=== PATIENT | male | born 1935 | race African-American/Black ===

== ENCOUNTER 2016-03-06 11:23 | Observation (INO) | payer MEDICARE, MEDICAID ==
[2016-03-06] VITALS (12 sets, daily range): BP systolic 120–150; BP diastolic 68–79; PULSE 80–94; RESP 12–20; TEMP 98–98.2; O2SAT 96–100
[~2016-03-06] VITALS: Ht 170.2 cm; Wt 75.0 kg
--- NOTE | 2016-03-06 11:37 | PD ---
HPI Chief Complaint: Abdominal Pain Time Seen by Provider: 11:37 Travel History International Travel<30 days: No Contact w/Intl Traveler<30days: No Traveled to known affect area: No History of Present Illness HPI 80-year-old male with history of stage IV esophageal cancer was brought in by his son for generalized weakness and some abdominal discomfort. Patient has finished with his radiation therapy and now getting his chemotherapy. His last treatment was last Sunday in the next one is supposed to be on this coming Sunday. However patient has been feeling weak and feels some abdominal bloating and discomfort and some chest discomfort. Vital signs were stable. [facility] Past Medical History Narrative Medical List of his past medical history as reviewed from the nursing note. Social History Tobacco Use: No Allergies-Medications (Allergen,Severity, Reaction): Coded Allergies: No Known Allergies (Unverified , 03/06/16) Comments No known drug allergies. Reported Meds & Prescriptions Reported Meds & Active Scripts Active Reported Ondansetron Odt 4 Mg Tab 4 Mg SL Q6HR PRN Omeprazole 40 Mg Cap 40 Mg PO DAILY Hydrocodone-Acetaminophen 10-325 mg Tab 1 Tab PO Q4H PRN Narrative Medication List of his home medications reviewed from the nursing note. Review of Systems Except as stated in HPI: all other systems reviewed are Neg Physical Exam Narrative GENERAL: Awake, alert, elderly, debilitated, frail SKIN: Warm and dry. Pale HEAD: Atraumatic. Normocephalic. EYES: Pupils equal and round. No scleral icterus. No injection or drainage. Pallor ENT: No nasal bleeding or discharge. Dry mucous membrane. NECK: Trachea midline. No JVD. CARDIOVASCULAR: Regular rate and rhythm. No murmur appreciated. RESPIRATORY: No accessory muscle use. Clear to auscultation. Breath sounds equal bilaterally. GASTROINTESTINAL: Abdomen soft, non-tender, nondistended. Hepatic and splenic margins not palpable. MUSCULOSKELETAL: No obvious deformities. No clubbing. No cyanosis. No edema. NEUROLOGICAL: Awake and alert. No obvious cranial nerve deficits. Motor grossly within normal limits. Normal speech. PSYCHIATRIC: Appropriate mood and affect; insight and judgment normal. Data Data Last Documented VS Vital Signs Date Time Temp Pulse Resp B/P Pulse Ox O2 Delivery O2 Flow Rate FiO2 03/06/16 11:39 90 20 138/68 03/06/16 11:25 98.0 97 Room Air Orders Complete Blood Count With Diff (03/06/16 11:42) Comprehensive Metabolic Panel (03/06/16 11:42) Prothrombin Time / Inr (Pt) (03/06/16 11:42) Act Partial Throm Time (Ptt) (03/06/16 11:42) Urinalysis - C+S If Indicated (03/06/16 11:42) Ct Abd/Pel W/O Iv Contrast (03/06/16 11:42) Iv Access Insert/Monitor (03/06/16 11:42) Ecg Monitoring (03/06/16 11:42) Oximetry (03/06/16 11:42) Sodium Chloride 0.9% Flush (Ns Flush) (03/06/16 11:45) Electrocardiogram (03/06/16 11:42) Chest, Single Ap (03/06/16 11:42) Troponin I (03/06/16 11:42) Type And Screen (03/06/16 11:42) Sodium Chlorid 0.9% 500 Ml Inj (Ns 500 M (03/06/16 11:45) Red Blood Cells (Rbc) (03/06/16 13:20) Blood Product Administration .UPON TRANSFUSION (03/06/16 13:20) Sodium Chlor 0.9% 250 Ml Inj (Ns 250 Ml (03/06/16 13:30) Place In Observation (03/06/16 ) Vital Signs (Adult) ANJUM.Q4H (03/06/16 13:41) Activity Oob Ad Jessie (03/06/16 13:41) Case Management Consult (03/06/16 ) Dietary (Dietitian) Consult (03/06/16 ) Consult Pt Eval & Tx Oob (03/06/16 13:41) Admit Order (Ed Use Only) (03/06/16 13:42) Labs Laboratory Tests Test 03/06/16 03/06/16 03/06/16 11:55 12:00 13:20 Prothrombin Time 11.4 SEC Prothromb Time International 1.0 RATIO Ratio Activated Partial 39.0 SEC Thromboplast Time Sodium Level 134 MEQ/L Potassium Level 3.7 MEQ/L Chloride Level 100 MEQ/L Carbon Dioxide Level 26.2 MEQ/L Anion Gap 8 MEQ/L Blood Urea Nitrogen 14 MG/DL Creatinine 0.84 MG/DL Estimat Glomerular Filtration 107 ML/MIN Rate Random Glucose 107 MG/DL Calcium Level 8.9 MG/DL Iron Level 23 MCG/DL Total Iron Binding Capacity 165 MCG/DL Percent Iron Saturation 13.9 % Ferritin 1224 NG/ML Total Bilirubin 0.4 MG/DL Aspartate Amino Transf 16 U/L (AST/SGOT) Alanine Aminotransferase 12 U/L (ALT/SGPT) Alkaline Phosphatase 81 U/L Troponin I LESS THAN 0.02 NG/ML Total Protein 6.6 GM/DL Albumin 2.3 GM/DL Vitamin B12 Level 714 PG/ML Folate 4.9 NG/ML White Blood Count 5.3 TH/MM3 Red Blood Count 2.55 MIL/MM3 Hemoglobin 7.7 GM/DL Hematocrit 22.7 % Mean Corpuscular Volume 89.0 FL Mean Corpuscular Hemoglobin 30.3 PG Mean Corpuscular Hemoglobin 34.1 % Concent Red Cell Distribution Width 15.0 % Platelet Count 262 TH/MM3 Mean Platelet Volume 6.1 FL Neutrophils (%) (Auto) 80.9 % Lymphocytes (%) (Auto) 10.8 % Monocytes (%) (Auto) 8.0 % Eosinophils (%) (Auto) 0.0 % Basophils (%) (Auto) 0.3 % Neutrophils # (Auto) 4.3 TH/MM3 Lymphocytes # (Auto) 0.6 TH/MM3 Monocytes # (Auto) 0.4 TH/MM3 Eosinophils # (Auto) 0.0 TH/MM3 Basophils # (Auto) 0.0 TH/MM3 CBC Comment DIFF FINAL Differential Comment Blood Type O POSITIVE Antibody Screen NEGATIVE Blood Bank Comment Crossmatch Leukocyte-Reduced Red Blood Cells MDM Medical Decision Making Medical Screen Exam Complete: Yes Emergency Medical Condition: Yes Medical Record Reviewed: Yes Interpretation(s) Twelve-lead EKG was reviewed by me. Normal sinus rhythm, left axis deviation, old inferior CT, nonspecific ST-T wave changes. Heart rate of 89 bpm. Differential Diagnosis Worsening esophageal cancer, ACS, anemia Narrative Course 1:45 PM blood test results were back and hemoglobin is 7.7. I've ordered for 1 unit of PRBC transfusion. CAT scan of the abdomen shows the stent from the esophagus into the stomach. No other signs of obstruction. I think the patient would benefit from overnight observation, IV hydration. I recommended the hospitalist to consult with patient's oncologist as well. Patient will be admitted overnight and I've explained this to the patient and he is agreeable to it. Critical Care Narrative Aggregate critical care time was 30 minutes. Time to perform other separately billable procedures was not included in the critical care time. My time did not include minutes spent treating any other patients simultaneously or on activities that did not directly contribute to the patient's treatment. The services I provided to this patient were to treat and/or prevent clinically significant deterioration that could result in: Symptomatic anemia, blood transfusion I provided critical care services requiring my management, as noted below: Chart data review, documentation time, medication orders and management, vital sign assessments/reviewing monitor data, ordering and reviewing lab tests, ordering and interpreting/reviewing x-rays and diagnostic studies, care of the patient and discussion of the patient with the admitting physicians. Procedures EKG Prior to Arrival: No Diagnosis Primary Impression: Symptomatic anemia Additional Impressions: Esophageal cancer Qualified Code: C15.4 - Malignant neoplasm of middle third of esophagus Weakness Admitting Information Admitting Physician Requests: Observation Scripts Walker Rolling/GetGo 1 Mis Mis #1 Ea .route As Directed Prov:Nikki Ray MD 03/07/16 Mahesh Coreas MD Mar 06, 2016 11:37
[2016-03-06] MEDS ORDERED: SODIUM CHLORIDE 0.9% FLUSH 5 ML FLUSH IVF PRN (11:45)
[2016-03-06] MEDS ORDERED: SODIUM CHLORID 0.9% 500 ML INJ 500 ML IV ONE (11:45)
[2016-03-06] MEDS ORDERED: HYDR-3583 PO (11:51)
[2016-03-06] MEDS ORDERED: ONDA4TAB7 SL (11:51)
[2016-03-06] MEDS ORDERED: OMEP40CA2 PO (11:51)
[2016-03-06] MEDS ORDERED: FENT12DI T-DERMAL (11:51)
[2016-03-06 12:14] LABS: AUTOMATED NEUTROPHIL # 4.3 TH/MM3 (1.8-7.7); BASOPHIL % 0.3 % (0.0-2.0); HEMATOCRIT 22.7 % (39.0-51.0); HEMO FLAGS DIFF FINAL; LYMPH % 10.8 % (9.0-44.0); LYMPHOCYTE # 0.6 TH/MM3 (1.0-4.8); MEAN CORPUSCULAR HEMOGLOBIN 30.3 PG (27.0-34.0); MEAN CORPUSCULAR HGB CONC 34.1 % (32.0-36.0); NEUT % 80.9 % (16.0-70.0); PLATELET COUNT 262 TH/MM3 (150-450); RED BLOOD COUNT 2.55 MIL/MM3 (4.50-5.90); WHITE BLOOD COUNT 5.3 TH/MM3 (4.0-11.0)
[2016-03-06 12:26] LABS: PROTHROMBIN TIME - PATIENT 11.4 SEC (9.8-11.6)
[2016-03-06 12:29] LABS: ALT (GPT) 12 U/L (12-78); ANION GAP 8 MEQ/L (5-15); AST (GOT) 16 U/L (15-37); BICARBONATE 26.2 MEQ/L (21.0-32.0); BLOOD UREA NITROGEN 14 MG/DL (7-18); CHLORIDE 100 MEQ/L (98-107); GLOMERULAR FILTRATION RATE 107 ML/MIN (>89); POTASSIUM 3.7 MEQ/L (3.5-5.1); SODIUM (NA) 134 MEQ/L (136-145)
[2016-03-06 12:33] LABS: ALKALINE PHOSPHATASE 81 U/L (45-117); TOTAL BILIRUBIN ADULT 0.4 MG/DL (0.2-1.0)
--- NOTE | 2016-03-06 12:33 | RADRPT ---
EXAM DATE/TIME: 03/06/2016 11:59 [facility] COMPARISON: CHEST SINGLE AP, March 06, 2016, 11:57. INDICATIONS : Abdomen pain. ORAL CONTRAST: No oral contrast ingested. RADIATION DOSE: 9.96 CTDIvol (mGy) MEDICAL HISTORY : Carcinoma, not otherwise specified. Chemotherapy. SURGICAL HISTORY : None. ENCOUNTER: Initial ACUITY: 1 day PAIN SCALE: 5/10 LOCATION: abdomen. TECHNIQUE: Volumetric scanning of the abdomen and pelvis was performed. Using automated exposure control and ad justment of the mA and/or kV according to patient size, radiation dose was kept as low as reasonably achievable to obtain optimal diagnostic quality images. FINDINGS: LOWER LUNGS: An esophageal stent is incompletely seen within the distal esophagus extending nearly to the EG junct ion level. LIVER: There are several nonspecific low density livers lesions seen involving right and left lobes of liver . Largest of these in the inferior aspect of the right lobe measures greater than 2.5 cm. SPLEEN: Normal size without lesion. PANCREAS: Within normal limits. KIDNEYS: Normal in size and shape. There is no mass, stone, or hydronephrosis. ADRENAL GLANDS: Within normal limits. VASCULAR: There is no aortic aneurysm. BOWEL/MESENTERY: Esophageal stent seen in the distal esophagus. There is also an esophageal stent within the stomach. The bowel structures are otherwise focally unremarkable. ABDOMINAL WALL: Within normal limits. RETROPERITONEUM: There are some enlarged periportal lymph nodes seen in the upper abdomen, most conspicuously just bel ow the level of the left renal vessels weren't lobular 2.4 cm presumed lambert mass is identified. BLADDER: No wall thickening or mass. REPRODUCTIVE: Prostate fiducials present INGUINAL: There is no lymphadenopathy or hernia. MUSCULOSKELETAL: Within normal limits for patient age. CONCLUSION: Esophageal stent in the stomach. Low-density liver masses. Para-aortic adenopathy. Fabio Romero MD on March 06, 2016 at 12:21 Board Certified Radiologist. This report was verified electronically.
[2016-03-06] MEDS ORDERED: SODIUM CHLOR 0.9% 250 ML INJ 250 ML IV ONE (13:30)
--- NOTE | 2016-03-06 14:22 | RADRPT ---
EXAM DATE/TIME: 03/06/2016 11:57 [facility] COMPARISON: CT SIMULATION, December 09, 2015, 11:39. INDICATIONS : Chest pain. MEDICAL HISTORY : Myocardial infarction. SURGICAL HISTORY : Infusaport. ENCOUNTER: Initial ACUITY: 1 day PAIN SCORE: 10/10 LOCATION: Bilateral lower chest FINDINGS: 2 AP portable upright views of the chest are reviewed. The lungs are hyperinflated but clear without evidence of pneumothorax. Stable emphysematous change. There is a right-sided central line with the t ip overriding the region of the distal SVC. Heart size appears normal. 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 Ove rlying cardiac leads are noted. Osseous structures are intact. CONCLUSION: No acute disease. Right-sided central line, appropriate in position. Savanna Lacy MD on March 06, 2016 at 12:29 Board Certified Radiologist. This report was verified electronically.
[2016-03-06 15:46] LABS: BACTERIA, URINE MANY /hpf; BLOOD, URINE NEG (NEG); COMMENT (UR) CULTURE INDICATED; CULTURE IF INDICATED CULTURE INDICATED; GLUCOSE,URINE NEG (NEG); KETONE, URINE 10 mg/dL (NEG); MUCUS URINE FEW /lpf (OCC); NITRITE,URINE NEG (NEG); SQUAMOUS EPITHELIAL CELL URINE 5 /hpf (0-5); TRIPLE PHOSPHATE CRYSTAL,URINE FEW /hpf; URINE COLOR YELLOW (YELLW/STRAW)
[2016-03-06] MEDS ORDERED: NON-FORMULARY DRUG (Fentanyl Patch 72 HR 1 PATCH) T-DERMAL SCH (16:30)
[2016-03-06] MEDS: ACETAMINOPHEN/HYDROcodone 325 MG/10 MG TAB PO PRN ×2 (17:21→21:33)
[2016-03-06] MEDS ORDERED: PANTOPRAZOLE SODIUM 40 MG VIAL IV PUSH SCH ×2 (18:00→18:15)
--- NOTE | 2016-03-06 18:03 | HHI.HP ---
[facility] Service [facility] Primary Care Physician Fabio Layne MD Admission Diagnosis symptomatic anemia, generalized weakness, esophageal cancer Diagnoses: Chief Complaint: Generalized weakness Travel History International Travel<30 Days: No Contact w/Intl Traveler <30 Da: No Traveled to Known Affected Are: No History of Present Illness Patient is a very pleasant 80 year old male with history of esophageal cancer diagnosed about a year ago completed 32 weeks of radiation therapy. Patient currently is having a chemotherapy under Dr. Piña. Baseline he uses a cane for long walks. Patient has been having difficulty swallowing still occasionally and is on a soft diet. Also has chronic back pain for which he takes narcotics with good relief. This morning felt weak and promptly summoned to bring him in here and on evaluation with a hemoglobin of 7.6. Don't have any baseline for comparison. Stools are brown and guaiac negative. Patient states that at one point he had blood transfusion 2 but this was about 8 months ago. Patient now admitted for blood transfusion. As the patient denies any melena hematochezia nausea vomiting or any fever. He denies any cough denies any dysuria chills. Denies any difficulty swallowing. he states is on soft diet Review of Systems Constitutional: DENIES: Diaphoretic episodes, Fatigue, Fever, Weight gain, Weight loss, Chills, Dizziness, Change in appetite, Night Sweats Endocrine: DENIES: Heat/cold intolerance, Polydipsia, Polyuria, Polyphagia Eyes: DENIES: Blurred vision, Diplopia, Eye inflammation, Eye pain, Vision loss , Photosensitivity, Double Vision Ears, nose, mouth, throat: COMPLAINS OF: Hoarseness, DENIES: Tinnitus, Hearing loss, Vertigo, Nasal discharge, Oral lesions, Throat pain, Ear Pain, Running Nose, Epistaxis, Sinus Pain, Toothache, Odynophagia Respiratory: DENIES: Apneas, Cough, Snoring, Wheezing, Hemoptysis, Sputum production, Shortness of breath Cardiovascular: DENIES: Chest pain, Palpitations, Syncope, Dyspnea on Exertion , PND, Lower Extremity Edema, Orthopnea, Claudication Gastrointestinal: COMPLAINS OF: Difficulty Swallowing Genitourinary: DENIES: Sexual dysfunction, Urinary frequency, Urinary incontinence, Urgency, Hematuria, Dysuria, Nocturia, Penile Discharge, Testicular Pain, Testicular Swelling Musculoskeletal: COMPLAINS OF: Back pain, DENIES: Joint pain, Muscle aches, Stiffness, Joint Swelling, Neck pain Integumentary: DENIES: Abnormal pigmentation, Nail changes, Pruritus, Rash Hematologic/lymphatic: DENIES: Bruising, Lymphadenopathy Immunologic/allergic: DENIES: Eczema, Urticaria Neurologic: DENIES: Abnormal gait, Headache, Localized weakness, Paresthesias, Seizures, Speech Problems, Tremor, Poor Balance Psychiatric: DENIES: Anxiety, Confusion, Mood changes, Depression, Hallucinations, Agitation, Suicidal Ideation, Homicidal Ideation, Delusions Past Family Social History Past Medical History Esophageal cancer status post radiation therapy now undergoing chemotherapy. History of chronic back pain more severe yesterday. Past Surgical History Esophageal cancer status post stent placed no major surgeries Reported Medications Ondansetron 4 mg sublingual when necessary for nausea vomiting Fentanyl patch 12 g every 3 days Oxycodone 10/325 mg every 4 hours Omeprazole 40 mg daily Allergies: Coded Allergies: No Known Allergies (Unverified , 03/06/16) Family History Noncontributory Social History Quit smoking about 8 months ago Quit alcohol for 3 years Denies substance abuse Physical Exam Vital Signs Vital Signs Date Time Temp Pulse Resp B/P Pulse Ox O2 Delivery O2 Flow Rate FiO2 03/06/16 17:30 98.2 90 16 148/78 96 03/06/16 15:55 98.2 90 16 148/78 100 03/06/16 11:39 90 20 138/68 03/06/16 11:25 98.0 94 12 120/79 97 Room Air Physical Exam GENERAL awake alert not in distress however appears weak SKIN: No rashes, ecchymoses or lesions. Cool and dry. HEAD: Atraumatic. Normocephalic. No temporal or scalp tenderness. EYES: Pupils equal round and reactive. Extraocular motions intact. No scleral icterus. No injection or drainage. ENT: Nose without bleeding, . Airway patent. NECK: Trachea midline. No JVD or lymphadenopathy. Supple, nontender, no meningeal signs. CARDIOVASCULAR: Regular rate and rhythm without murmurs, gallops, or rubs. RESPIRATORY: Clear to auscultation. Breath sounds equal bilaterally. No wheezes , rales, or rhonchi. Port in place signs of infection GASTROINTESTINAL: Abdomen soft, non-tender, nondistended. . No guarding. MUSCULOSKELETAL: Extremities without clubbing, cyanosis, or edema. No joint tenderness, effusion, or edema noted. No calf tenderness. Negative Homans sign bilaterally. NEUROLOGICAL: Awake and alert. Cranial nerves II through XII intact. Motor and sensory grossly within normal limits. Moves all extremities equally. Normal speech. Laboratory Laboratory Tests Test 03/06/16 03/06/16 03/06/16 03/06/16 11:55 12:00 13:20 15:04 White Blood Count 5.3 Red Blood Count 2.55 Hemoglobin 7.7 Hematocrit 22.7 Mean Corpuscular Volume 89.0 Mean Corpuscular Hemoglobin 30.3 Mean Corpuscular Hemoglobin 34.1 Concent Red Cell Distribution Width 15.0 Platelet Count 262 Mean Platelet Volume 6.1 Neutrophils (%) (Auto) 80.9 Lymphocytes (%) (Auto) 10.8 Monocytes (%) (Auto) 8.0 Eosinophils (%) (Auto) 0.0 Basophils (%) (Auto) 0.3 Neutrophils # (Auto) 4.3 Lymphocytes # (Auto) 0.6 Monocytes # (Auto) 0.4 Eosinophils # (Auto) 0.0 Basophils # (Auto) 0.0 CBC Comment DIFF FINAL Differential Comment Prothrombin Time 11.4 Prothromb Time International 1.0 Ratio Activated Partial 39.0 Thromboplast Time Sodium Level 134 Potassium Level 3.7 Chloride Level 100 Carbon Dioxide Level 26.2 Anion Gap 8 Blood Urea Nitrogen 14 Creatinine 0.84 Estimat Glomerular Filtration 107 Rate Random Glucose 107 Calcium Level 8.9 Total Bilirubin 0.4 Aspartate Amino Transf 16 (AST/SGOT) Alanine Aminotransferase 12 (ALT/SGPT) Alkaline Phosphatase 81 Troponin I LESS THAN 0.02 Total Protein 6.6 Albumin 2.3 Blood Type O POSITIVE Antibody Screen NEGATIVE Blood Bank Comment Crossmatch Leukocyte-Reduced Red Blood Cells Urine Color YELLOW Urine Turbidity CLOUDY Urine pH 8.0 Urine Specific [place] 1.019 Urine Protein 100 Urine Glucose (UA) NEG Urine Ketones 10 Urine Occult Blood NEG Urine Nitrite NEG Urine Bilirubin NEG Urine Urobilinogen 2.0 Urine Leukocyte Esterase LARGE Urine RBC 4 Urine WBC 29 Urine WBC Clumps FEW Urine Squamous Epithelial 5 Cells Urine Triple Phosphate FEW Crystals Urine Amorphous Sediment OCC Urine Bacteria MANY Urine Mucus FEW Microscopic Urinalysis Comment CULTURE INDICATED Test 03/06/16 16:20 Blood Type O POSITIVE Date/Time Procedure Status Source Growth 03/06/16 15:04 Urine Culture Received Urine Clean Catch Pending Result Diagram: 03/06/16 1155 03/06/16 1155 Assessment and Plan Assessment and Plan 80-year-old male presenting with Symptomatic Anemia with generalized weakness. We don't have old labs comparison will Transfuse 2 units packed RBC Check baseline iron studies Rectal exam with brown stools guaiac negative Continue on PPI. get Swallowing evaluation with Speech therapy in am History of esophageal cancer outpatient follow-up with Dr. Piña Urinary tract infection. Follow C&S. Start patient on Levaquin 500 milligrams IV daily Chronic pain Dilaudid 0.2 mg IV q 4 prn for pain we'll increase fentanyl to 25 g daily Continue Roxicodone 10/325 one every 4 hours when necessary for pain Consult Physical therapy to evaluate patient Case MANAGEMENT to arrange home health care Nikki Ray MD Mar 06, 2016 18:03
[2016-03-06] MEDS ORDERED: ONDANSETRON ODT 4 MG TAB SL PRN (18:15)
[2016-03-06] MEDS ORDERED: fentaNYL 25 MCG/HR PATCH TD ONE (18:45)
[2016-03-06 19:03] LABS: FERRITIN 1224 NG/ML (26-388); TRANSFERRIN IRON PROFILE 118 MG/DL (200-360)
[2016-03-06] MEDS ORDERED: ONDANSETRON HCL 4 MG/2 ML VIAL IV PUSH PRN (20:00)
[2016-03-06] MEDS ORDERED: FENTANYL 12 MCG/HR TOPICAL SCH (20:00)
[2016-03-07] MEDS: D5-NS + KCL 20 MEQ INJ 1,000 ML IV SCH (00:01)
[2016-03-07] MEDS: ACETAMINOPHEN/HYDROcodone 325 MG/10 MG TAB PO PRN ×5 (01:04→20:34)
[2016-03-07 04:33] VITALS: BP 159/76; PULSE 111; RESP 20; TEMP 98.4; O2SAT 99
[2016-03-07 07:52] VITALS: BP 133/74; PULSE 74; RESP 18; TEMP 98; O2SAT 100
[2016-03-07 08:02] LABS: HEMATOCRIT 29.8 % (39.0-51.0); MEAN CELL VOLUME 85.4 FL (80.0-100.0); MEAN CORPUSCULAR HEMOGLOBIN 29.3 PG (27.0-34.0); MEAN CORPUSCULAR HGB CONC 34.2 % (32.0-36.0); PLATELET COUNT 228 TH/MM3 (150-450); RED BLOOD COUNT 3.48 MIL/MM3 (4.50-5.90); RED CELL DISTRIBUTION WIDTH 15.7 % (11.6-17.2); REVIEW FLAG FINAL; WHITE BLOOD COUNT 6.9 TH/MM3 (4.0-11.0)
[2016-03-07] MEDS ORDERED: GETGO ROLLING W1 MI1 (11:42)
[2016-03-07 12:40] VITALS: BP 142/66; PULSE 71; RESP 18; TEMP 98.1; O2SAT 100
--- NOTE | 2016-03-07 12:45 | HHI.PR ---
Subjective Remarks feels stronger feels pain when swallowing midsternum - on pureed diet Objective Vitals Vital Signs Date Time Temp Pulse Resp B/P Pulse Ox O2 Delivery O2 Flow Rate FiO2 03/07/16 07:52 98.0 74 18 133/74 100 03/07/16 04:33 98.4 111 20 159/76 99 03/06/16 23:46 98.1 84 20 137/69 99 03/06/16 23:45 98.1 84 20 137/69 99 03/06/16 22:35 98.2 85 20 144/77 100 03/06/16 21:35 98.2 80 16 150/73 03/06/16 21:20 98.2 84 16 148/73 99 03/06/16 21:00 98.2 84 16 148/73 99 03/06/16 19:55 98.1 86 20 150/71 100 03/06/16 18:21 20 03/06/16 17:45 98.0 90 20 148/78 03/06/16 17:30 98.2 90 16 148/78 96 03/06/16 15:55 98.2 90 16 148/78 100 I/O 03/06/16 03/06/16 03/06/16 03/07/16 03/07/16 03/07/16 07:00 15:00 23:00 07:00 15:00 23:00 Intake Total 400 ml 658 ml Balance 400 ml 658 ml Intake IV Total 100 ml 358 ml Packed Cells 300 ml 300 ml Result Diagram: 03/07/16 0750 03/06/16 1155 Imaging Last Impressions Chest X-Ray 03/06/16 1142 Signed Impressions: Service Date/Time: Sunday, March 06, 2016 11:57 - CONCLUSION: No acute disease. Right-sided central line, appropriate in position. Savanna Lacy MD Abdomen/Pelvis CT 03/06/16 1142 Signed Impressions: Service Date/Time: Sunday, March 06, 2016 11:59 - CONCLUSION: Esophageal stent in the stomach. Low-density liver masses. Para-aortic adenopathy. Fabio Romero MD Objective Remarks awake and alert, oriented x 3 anicteric lungs clear regular rhythm abdomen sosft, nontender extremities no edema neuro exam- unremarkable A/P Assessment and Plan 80-year-old male presenting with Symptomatic Anemia of chronic disease - with generalized weakness. S/P Transfuse 2 units packed RBC iron studies suggestive of chronic disease Rectal exam with brown stools guaiac negative Continue on PPI. swallwowing evaluation- + pain Odynophagia -History of esophageal cancer ff by Dr. Piña-oncology on pureed diet GI consult- Dr. Baldwin- ? need for stent /dilatation . ? PEG Urinary tract infection. Follow C&S. on Levaquin 500 milligrams IV daily Chronic pain Dilaudid 0.2 mg IV q 4 prn for pain fentanyl to 25 g q 3 days Continue Roxicodone 10/325 one every 4 hours when necessary for pain Physical therapy to evaluate patient Case MANAGEMENT to arrange for DC needs Nikki Ray MD Mar 07, 2016 12:45
--- NOTE | 2016-03-07 14:19 | EKG ---
Date Performed: 03/06/2016 Time Performed: 12:14:37 PTAGE: 80 years EKG: Sinus rhythm INCOMPLETE RIGHT BUNDLE BRANCH BLOCK LEFT ANTERIOR FASCICULAR BLOCK ABNORMAL ECG PREVIOUS TRACING : 06/26/2013 12.00 Since previous tracing, no significant change noted DOCTOR: Andrews Sapp Interpretating Date/Time 03/07/2016 14:11:52
--- NOTE | 2016-03-07 15:09 | PD.CONS ---
HPI History of Present Illness This is a 80 year old male patient who was diagnosed with esophageal cancer about a year ago. He completed 32 weeks of radiation on February 07, 2016. He is currently receiving chemotherapy with Dr. Wilkinson, but he is not aware of the name of this. He last had this last Sunday. He came to the ER for evaluation yesterday after he woke up and was having significant abdominal pain. He is currently having an intermittent sharp pain in his epigastric area. There is no radiation. He has some mild nausea without vomiting. He is not having any heartburn or reflux. He has lost a significant amount of weight. He is followed by Dr. Baldwin and they report that he had a esophageal stent placed in April of 2015. Afterwards, he was able to eat a soft diet. He is not having any issues with food getting caught. He has a decreased appetite , but has been able to eat enough. He is also taking milkshakes by mouth. He was found to have anemia. He has not seen any blood loss. His last EGD was about 4-5 months ago. (Carisa Granados) PFSH Past Medical History Esophageal cancer, S/P radiation therapy now undergoing chemotherapy. Chronic back pain Past Surgical History EGD with stent placement (Carisa Granados) Coded Allergies: No Known Allergies (Unverified , 03/06/16) Medications Allergies Coded Allergies Type Severity Reaction Last Updated Verified No Known Allergies 03/06/16 No Active Scripts Medications Dose Route/Sig Days Date Category Walker Rolling/GetGo (Device) 1 Mis Mis 1 Ea .ROUTE DIRECTED 03/07/16 Rx Ondansetron Odt 4 Mg Tab 4 Mg SL Q6HR PRN 03/06/16 Reported Omeprazole 40 Mg Cap 40 Mg PO DAILY 03/06/16 Reported Hydrocodone-Acetaminophen 10-325 mg Tab 1 Tab PO Q4H PRN 03/06/16 Reported Family History Brother with unknown type of cancer Social History Quit smoking about 8 months ago Quit alcohol for 3 years Denies substance abuse (Carisa Granados) Review of Systems Constitutional: COMPLAINS OF: Fatigue, Weight loss, Change in appetite Respiratory: DENIES: Cough Cardiovascular: DENIES: Chest pain Gastrointestinal: COMPLAINS OF: Abdominal pain, DENIES: Black stools, Bloody stools, Constipation, Diarrhea, Nausea, Vomiting, Difficulty Swallowing, Swelling of Abdomen, Heartburn Musculoskeletal: DENIES: Back pain Integumentary: DENIES: Abnormal pigmentation Hematologic/lymphatic: DENIES: Bruising Neurologic: DENIES: Headache Psychiatric: DENIES: Confusion (Carisa Granados JOVON) GI Exam Vitals I&O Vital Signs Date Time Temp Pulse Resp B/P Pulse Ox O2 Delivery O2 Flow Rate FiO2 03/07/16 12:40 98.1 71 18 142/66 100 03/07/16 07:52 98.0 74 18 133/74 100 03/07/16 04:33 98.4 111 20 159/76 99 03/06/16 23:46 98.1 84 20 137/69 99 03/06/16 23:45 98.1 84 20 137/69 99 03/06/16 22:35 98.2 85 20 144/77 100 03/06/16 21:35 98.2 80 16 150/73 03/06/16 21:20 98.2 84 16 148/73 99 03/06/16 21:00 98.2 84 16 148/73 99 03/06/16 19:55 98.1 86 20 150/71 100 03/06/16 18:21 20 03/06/16 17:45 98.0 90 20 148/78 03/06/16 17:30 98.2 90 16 148/78 96 03/06/16 15:55 98.2 90 16 148/78 100 I/O 03/06/16 03/06/16 03/06/16 03/07/16 03/07/16 03/07/16 07:00 15:00 23:00 07:00 15:00 23:00 Intake Total 400 ml 658 ml Balance 400 ml 658 ml Intake IV Total 100 ml 358 ml Packed Cells 300 ml 300 ml Imaging Last Impressions Chest X-Ray 03/06/16 1142 Signed Impressions: Service Date/Time: Sunday, March 06, 2016 11:57 - CONCLUSION: No acute disease. Right-sided central line, appropriate in position. Savanna Lacy MD Abdomen/Pelvis CT 03/06/16 1142 Signed Impressions: Service Date/Time: Sunday, March 06, 2016 11:59 - CONCLUSION: Esophageal stent in the stomach. Low-density liver masses. Para-aortic adenopathy. Fabio Romero MD Laboratory Test 03/06/16 03/06/16 03/06/16 03/07/16 15:04 16:20 18:03 07:50 Urine Color YELLOW Urine Turbidity CLOUDY Urine pH 8.0 Urine Specific [place] 1.019 Urine Protein 100 mg/dL Urine Glucose (UA) NEG mg/dL Urine Ketones 10 mg/dL Urine Occult Blood NEG Urine Nitrite NEG Urine Bilirubin NEG Urine Urobilinogen 2.0 MG/DL Urine Leukocyte Esterase LARGE Urine RBC 4 /hpf Urine WBC 29 /hpf Urine WBC Clumps FEW Urine Squamous Epithelial 5 /hpf Cells Urine Triple Phosphate FEW /hpf Crystals Urine Amorphous Sediment OCC Urine Bacteria MANY /hpf Urine Mucus FEW /lpf Microscopic Urinalysis Comment CULTURE INDICATED Blood Type O POSITIVE Crossmatch Leukocyte-Reduced Red Blood Cells Blood Bank Comment White Blood Count 6.9 TH/MM3 Red Blood Count 3.48 MIL/MM3 Hemoglobin 10.2 GM/DL Hematocrit 29.8 % Mean Corpuscular Volume 85.4 FL Mean Corpuscular Hemoglobin 29.3 PG Mean Corpuscular Hemoglobin 34.2 % Concent Red Cell Distribution Width 15.7 % Platelet Count 228 TH/MM3 Mean Platelet Volume 6.0 FL Date/Time Procedure Status Source Growth 03/06/16 15:04 Urine Culture - Preliminary Resulted Urine Clean Catch Gram Negative Jey Physical Examination HEENT: Normocephalic; atraumatic; no jaundice. CHEST: CTA CARDIAC: RRR ABDOMEN: Soft, nondistended, moderate epigastric tenderness; no hepatosplenomegaly; bowel sounds are present in all four quadrants. EXTREMITIES: No clubbing, cyanosis, or edema. SKIN: Normal; no rash; no jaundice. VEGETABLE CUTTER: No focal deficits; alert and oriented times three. (Carisa Granados) Assessment and Plan Plan ASSESSMENT: - Epigastric pain. Pt with intermittent sharp epigastric pain since yesterday. Abdomen/Pelvis CT (03/06/16)----> Esophageal stent in the stomach. Low-density liver masses. Para-aortic adenopathy. - Esophageal cancer. Followed by Dr. Baldwin and Dr. Wilkinson. Dx 1 year ago. S/P 32 weeks of radiation, completed on 02/06. He is currently on chemotherapy with Dr. Wilkinson- does not know the name, but last had on Sunday. Last EGD was 4 months ago. - Dysphagia. Pt had esophageal stent placed by Dr. Baldwin in April of 2015. Since this time, he has been able to eat soft foods. He does have decreased appetite, but denies any difficulty with food getting caught. He ate 90% lunch. - Iron Deficiency Anemia. H/H 7.7/22.7. S/P 2 units PRBC. 10.2/29.8. PLAN: - Plan for egd in am - Obtain consents - NPO after MN - Change Protonix to 40mg IV BID - Monitor HH - Transfuse as necessary - Supportive care - Further recommendations to follow based on results of above - Pt seen and examined by Dr. Zarco and myself and this note is written on his behalf (Carisa Granados) Physician Comments Patient seen and examined Agree with above Continue with current supportive care Monitor labs EGD tomorrow (Quique Zarco MD) Carisa Granados Mar 07, 2016 15:09 Quique Zarco MD Mar 07, 2016 20:33
[2016-03-07 15:56] VITALS: BP 121/62; PULSE 84; RESP 16; TEMP 97; O2SAT 100
[2016-03-07] MEDS: LEVOFLOXACIN 500 MG PREMIX INJ 100 ML IV SCH ×2 (17:48)
[2016-03-07] MEDS: PANTOPRAZOLE SODIUM 40 MG VIAL IV PUSH SCH (20:35)
[2016-03-07 21:01] VITALS: BP 110/74; PULSE 97; RESP 20; TEMP 98.7; O2SAT 96
[2016-03-08] VITALS (8 sets, daily range): BP systolic 112–156; BP diastolic 61–95; PULSE 88–118; RESP 16–22; TEMP 97.4–98.7; O2SAT 94–100
[2016-03-08] MEDS: HYDROmorphone HCL PF 1 MG/ML VIAL IV PUSH PRN ×3 (01:06→23:41)
[2016-03-08] MEDS: D5-NS + KCL 20 MEQ INJ 1,000 ML IV SCH (02:56)
[2016-03-08] MEDS: ACETAMINOPHEN/HYDROcodone 325 MG/10 MG TAB PO PRN ×4 (04:46→21:29)
--- NOTE | 2016-03-08 07:49 | HHI.PR ---
Subjective Remarks feels stronger, denies any nausea, or vomiting complains of intermittent sensation of food feeling stuck in mid esophagus tolerating puree diet no abdominal pain, complains of constipation Objective Vitals Vital Signs Date Time Temp Pulse Resp B/P Pulse Ox O2 Delivery O2 Flow Rate FiO2 03/08/16 06:00 18 03/08/16 05:15 97.4 90 20 122/66 94 03/08/16 01:40 18 03/08/16 00:23 98.6 88 20 123/64 96 03/07/16 21:01 98.7 97 20 110/74 96 03/07/16 15:56 97.0 84 16 121/62 100 03/07/16 12:40 98.1 71 18 142/66 100 03/07/16 07:52 98.0 74 18 133/74 100 I/O 03/07/16 03/07/16 03/07/16 03/08/16 03/08/16 03/08/16 07:00 15:00 23:00 07:00 15:00 23:00 Intake Total 658 ml 590 ml Output Total 200 ml Balance 658 ml 590 ml -200 ml Intake IV Total 358 ml 590 ml Packed Cells 300 ml Output Urine Total 200 ml Result Diagram: 03/07/16 0750 03/06/16 1155 Imaging Last Impressions Chest X-Ray 03/06/16 1142 Signed Impressions: Service Date/Time: Sunday, March 06, 2016 11:57 - CONCLUSION: No acute disease. Right-sided central line, appropriate in position. Savanna Lacy MD Abdomen/Pelvis CT 03/06/16 1142 Signed Impressions: Service Date/Time: Sunday, March 06, 2016 11:59 - CONCLUSION: Esophageal stent in the stomach. Low-density liver masses. Para-aortic adenopathy. Fabio Romero MD Objective Remarks awake and alert, oriented x 3 anicteric lungs clear regular rhythm abdomen soft, nontender extremities trace pretibial edema neuro exam- unremarkable A/P Assessment and Plan 80-year-old male presenting with Symptomatic Anemia of chronic disease - with generalized weakness. S/P Transfuse 2 units packed RBC iron studies suggestive of chronic disease Rectal exam with brown stools guaiac negative Continue on PPI bid GI ff- for EGD today Odynophagia- History of esophageal cancer outpatient follow-up by Dr. Piña- oncology on pureed diet GI ff - for EGD today - need for stent /dilatation . ? PEG candidate Urinary tract infection. - gram negative rods- final C and S pending.. on Levaquin 500 milligrams IV daily Chronic pain Dilaudid 0.2 mg IV q 4 prn for pain fentanyl to 25 g q 3 days Continue Roxicodone 10/325 one every 4 hours when necessary for pain constipation colace 100 mg po bid Physical therapy daily Case management consult for [place] planning- home health care needs Nikki Ray MD Mar 08, 2016 07:49
[2016-03-08] MEDS: PANTOPRAZOLE SODIUM 40 MG VIAL IV PUSH SCH ×2 (09:00→21:27)
[2016-03-08] MEDS: DOCUSATE SODIUM 100 MG CAP PO SCH ×2 (09:37→21:28)
[2016-03-08] MEDS ORDERED: PROPOFOL 200 MG/20 ML AMP IV ONE (14:29)
--- NOTE | 2016-03-08 14:57 | PD.PROCEDR ---
GI Procedure REFERRING PHYSICIAN Dr. Ray PROCEDURE PERFORMED EGD INDICATION FOR PROCEDURE Abdominal pain PROCEDURE: The procedure, risks and benefits were discussed with Mr. Myles and informed consent was obtained. Anesthesia sedated him with Diprivan. He was placed in the left lateral decubitus position. EGD: The Pentax videoscope was introduced through the oropharynx and advanced to the second portion of the duodenum under direct visualization. Retroflexion was performed in the stomach. FINDINGS: The esophagus there was a distal esophageal stent that's quite embedded we were unable to remove it today the proximal portions of the esophagus was unremarkable The stomach there was another stent in the stomach The duodenum this was normal ESTIMATED BLOOD LOSS: None SPECIMENS REMOVED: None COMPLICATIONS: None IMPRESSION: Esophageal stent Stent/foreign body in the stomach PLAN: Will plan for an EGD in the OR tomorrow for removal of esophageal stent and perform body from the stomach Quique Zarco MD Mar 08, 2016 14:57
[2016-03-08] MEDS: SULFAMETHOXAZOLE-TRIMETHOPRIM DS 800-160 MG TAB PO SCH ×2 (15:46→21:28)
[2016-03-09 04:22] VITALS: BP 139/75; PULSE 111; RESP 22; TEMP 97.4; O2SAT 100
[2016-03-09 07:41] VITALS: BP 137/68; PULSE 107; RESP 18; TEMP 98; O2SAT 97
[2016-03-09] MEDS: SULFAMETHOXAZOLE-TRIMETHOPRIM DS 800-160 MG TAB PO SCH ×2 (09:02→20:46)
[2016-03-09] MEDS: DOCUSATE SODIUM 100 MG CAP PO SCH ×2 (09:02→20:46)
[2016-03-09] MEDS: PANTOPRAZOLE SODIUM 40 MG VIAL IV PUSH SCH ×2 (09:02→20:46)
[2016-03-09] MEDS: HYDROmorphone HCL PF 1 MG/ML VIAL IV PUSH PRN (10:40)
[2016-03-09 10:53] VITALS: BP 173/77; PULSE 85; RESP 16; TEMP 97.9; O2SAT 100
--- NOTE | 2016-03-09 11:48 | HHI.PR ---
Subjective Remarks Follow-up for anemia and dysphagia. Patient seen with family member at bedside. Patient complains of sacrum/perirectal pain. Is also having some epigastric discomfort. He's been having burning with urination. He is thirsty and nothing by mouth awaiting GI procedure today. He has some mild shortness of breath, chronic, unchanged. He's been having swelling in his legs for the past 2 weeks, unchanged. Objective Vitals Vital Signs Date Time Temp Pulse Resp B/P Pulse Ox O2 Delivery O2 Flow Rate FiO2 03/09/16 10:53 97.9 85 16 173/77 100 03/09/16 07:41 98.0 107 18 137/68 97 03/09/16 04:22 97.4 111 22 139/75 100 03/09/16 00:15 19 03/08/16 23:37 98.3 118 20 112/61 99 03/08/16 22:35 22 03/08/16 19:55 98.7 111 20 126/74 99 03/08/16 15:22 98.0 105 22 147/67 94 03/08/16 15:09 94 16 122/75 95 03/08/16 15:04 98 16 116/73 92 03/08/16 14:59 98.1 98 16 119/75 95 03/08/16 13:30 97.8 90 18 156/95 100 I/O 03/08/16 03/08/16 03/08/16 03/09/16 03/09/16 03/09/16 07:00 15:00 23:00 07:00 15:00 23:00 Intake Total 550 ml Output Total 200 ml Balance -200 ml 550 ml Intake IV Total 550 ml Output Urine Total 200 ml # Bowel Movements 1 Result Diagram: 03/07/16 0750 03/06/16 1155 Imaging Last Impressions Chest X-Ray 03/06/16 1142 Signed Impressions: Service Date/Time: Sunday, March 06, 2016 11:57 - CONCLUSION: No acute disease. Right-sided central line, appropriate in position. Savanna Lacy MD Abdomen/Pelvis CT 03/06/16 1142 Signed Impressions: Service Date/Time: Sunday, March 06, 2016 11:59 - CONCLUSION: Esophageal stent in the stomach. Low-density liver masses. Para-aortic adenopathy. Fabio Romero MD Objective Remarks GENERAL: Well-developed fair nourished cachectic-appearing patient. In no acute distress. SKIN: Warm and dry. No lesions noted. Sacral skin intact, and perirectal area unremarkable. HEENT: Normocephalic. Pupils equal and round. Mucous membranes pink and moist. CARDIOVASCULAR: Regular rate and rhythm. No murmur appreciated. RESPIRATORY: No accessory muscle use. Clear to auscultation. Breath sounds equal bilaterally. GASTROINTESTINAL: Abdomen soft, mild epigastric TTP, nondistended. Bowel sounds x4. MUSCULOSKELETAL: No obvious deformities. No clubbing or cyanosis. No edema. NEUROLOGICAL: Awake and alert. No focal neurological deficits. Moves upper and lower extremities spontaneously. Normal speech. PSYCHIATRIC: Appropriate mood and affect; insight and judgment normal. A/P Problem List: (1) Esophageal cancer ICD Code: C15.9 Status: Acute (2) Symptomatic anemia ICD Code: D64.9 Status: Acute (3) Weakness ICD Code: R53.1 Status: Acute Assessment and Plan 80-year-old male who presented with Symptomatic Anemia of chronic disease - with generalized weakness. S/P Transfuse 2 units packed RBC with improvement in hemoglobin Iron studies suggestive of chronic disease Rectal exam showed brown stools guaiac negative Continue on PPI bid GI following as below Follow-up CBC Odynophagia with History of esophageal cancer followed outpatient by Dr. Wilkinson-oncology and Dr. Baldwin-GI on pureed diet GI following-performed EGD 03/09, found embedded stent, repeat EGD today in the OR for removal of stent IVF with dextrose while nothing by mouth Urinary tract infection. - Urine culture grew Proteus mirabilis sensitive to Augmentin and Bactrim IV Levaquin was changed to Bactrim 03/08 Chronic pain Dilaudid 0.2 mg IV q 4 prn for pain fentanyl to 25 g q 3 days Continue Roxicodone 10/325 one every 4 hours when necessary for pain constipation colace 100 mg po bid Lower extremity swellingchronic Carlitos and DORIS doss Physical therapy, HHC at [place] Case management consult for [place] planning- home health care needs Written by Rex Mendieta, acting as scribe for Dr. Hernández on 03/09/16 at 11:41. Discharge Planning Disposition pending clinical course Attending Statement The documentation accurately reflects the work performed [id number] by me, Dr. Hernández on 03/09/16 at 11:41. Problem Qualifiers (1) Esophageal cancer: Qualified Code: C15.4 - Malignant neoplasm of middle third of esophagus Rex Mendieta Mar 09, 2016 11:48 Flex Hernández MD Apr 03, 2016 02:12
[2016-03-09] MEDS: SODIUM CHLORIDE 23.4% INJ 77 MEQ in DEXTROSE 10% INJ 1,000 ML IV SCH (12:21)
[2016-03-09] MEDS ORDERED: SUGAMMADEX SODIUM 200 MG/2 ML VIAL IV PUSH ONE ×2 (13:56)
[2016-03-09] MEDS ORDERED: ONDANSETRON HCL 4 MG/2 ML VIAL IV PUSH ONE (14:22)
[2016-03-09] MEDS ORDERED: LACTATED RINGER'S 1,000 ML BAG IV ONE (14:22)
[2016-03-09] MEDS ORDERED: PROPOFOL 200 MG/20 ML AMP IV ONE (14:22)
--- NOTE | 2016-03-09 15:53 | PD.PROCEDR ---
GI Procedure REFERRING PHYSICIAN Dr. Hernández PROCEDURE PERFORMED EGD with esophageal stent removal and removal of a second loose stent in the stomach/foreign body removal from the stomach INDICATION FOR PROCEDURE Abdominal pain with foreign body in the stomach that needs removal PROCEDURE: The procedure, risks and benefits were discussed with Mr. Myles and informed consent was obtained. Anesthesia performed general anesthesia with intubation. He was placed in the left lateral decubitus position. EGD: The Pentax videoscope was introduced through the oropharynx and advanced to the second portion of the duodenum under direct visualization. Retroflexion was performed in the stomach. FINDINGS: The esophagus there was a mid to distal esophageal stent this was partially covered and it was significantly embedded in both its upper and lower portions into the esophageal wall and this took quite a bit of time to pry off but finally we were able to remove it with no obvious tears or complications no evidence of the esophageal cancer was seen and no stent was placed following the extraction of the foreign body in the stomach The stomach this appeared to be unremarkable and within normal limits there was an esophageal stent Malik in the antrum we were able to remove this with relative ease The duodenum this was unremarkable and within normal limits ESTIMATED BLOOD LOSS: None SPECIMENS REMOVED: None COMPLICATIONS: None IMPRESSION: Removal of esophageal stent and foreign body from the stomach History of esophageal cancer with no evidence of cancer at this point PLAN: Supportive care Quique Zarco MD Mar 09, 2016 15:53
[2016-03-09] MEDS ORDERED: fentaNYL CITRATE 250 MCG/5 ML AMP ONE (16:04)
[2016-03-09] MEDS ORDERED: MIDAZOLAM HCL 2 MG/2 ML VIAL ONE (16:04)
[2016-03-09] MEDS ORDERED: *RESP: ALBUTEROL 2.5 MG/3 ML NEB (PRN) PERIprocedural Use ONLY NEB ONE (16:21)
[2016-03-09] MEDS ORDERED: DO NOT ADM ANY ANTICOAGULANT DRUGS XX PRN (16:30)
[2016-03-09] MEDS ORDERED: *morphine SULFATE 8 MG/ML PERIprocedure ONLY ONE (17:21)
[2016-03-09] MEDS ORDERED: REMOVE OLD DURAGESIC (FENTANYL) PATCH TD SCH (18:45)
[2016-03-09 19:22] VITALS: BP 134/60; PULSE 124; RESP 20; TEMP 97.9; O2SAT 95
[2016-03-10 00:58] VITALS: BP 121/68; PULSE 105; RESP 20; TEMP 97.8; O2SAT 95
[2016-03-10 04:59] VITALS: BP 108/89; PULSE 86; RESP 20; TEMP 98.2; O2SAT 97
[2016-03-10 05:01] LABS: HEMATOCRIT 31.1 % (39.0-51.0); MEAN CELL VOLUME 86.7 FL (80.0-100.0); MEAN CORPUSCULAR HEMOGLOBIN 29.1 PG (27.0-34.0); MEAN CORPUSCULAR HGB CONC 33.6 % (32.0-36.0); PLATELET COUNT 187 TH/MM3 (150-450); RED BLOOD COUNT 3.58 MIL/MM3 (4.50-5.90); RED CELL DISTRIBUTION WIDTH 15.8 % (11.6-17.2); REVIEW FLAG FINAL; WHITE BLOOD COUNT 8.5 TH/MM3 (4.0-11.0)
[2016-03-10 05:08] LABS: BICARBONATE 24.9 MEQ/L (21.0-32.0)
[2016-03-10 07:20] VITALS: BP 103/59; PULSE 103; RESP 18; TEMP 98.7; O2SAT 93
--- NOTE | 2016-03-10 08:53 | HHI.FF ---
Face to Face Verification Diagnosis: (1) Weakness (2) Symptomatic anemia (3) Esophageal cancer Physical Therapy Order: Evaluate and Treat, Improve ambulation, Strength and gait training Home Health Nursing Order: Medical education Signs/symptoms of disease process Nursing assessment with vital signs I have seen patient Uli Myles on 03/10/16. My clinical findings support the need for the requested home health care services because: Ltd mobility - disease progression Deconditioned w/ increased weakness Limited ability to care for self I certify that my clinical findings support that this patient is homebound because: Unsteady gait/balance Unsafe to leave home unassisted Elaine Telles PA-C Mar 10, 2016 08:53
--- NOTE | 2016-03-10 09:04 | HHI.PR ---
Subjective Remarks Follow up for anemia and dysphagia. The patient is sleeping upon my arrival, seen with his nephew at bedside. He is s/p esophageal stent/foreign body removal last night. He has not yet ate since his procedure. He is looking forward to breakfast this morning. He had a good formed BM this morning. He wants to go home this afternoon if possible. Objective Vitals Vital Signs Date Time Temp Pulse Resp B/P Pulse Ox O2 Delivery O2 Flow Rate FiO2 03/10/16 07:20 98.7 103 18 103/59 93 03/10/16 04:59 98.2 86 20 108/89 97 03/10/16 00:58 97.8 105 20 121/68 95 03/09/16 19:22 97.9 124 20 134/60 95 03/09/16 17:43 97.0 108 18 118/65 94 Nasal Cannula 4 03/09/16 17:30 108 18 118/65 94 Nasal Cannula 4 03/09/16 17:15 119 18 134/88 96 Nasal Cannula 4 03/09/16 17:00 111 18 142/84 95 Nasal Cannula 4 03/09/16 16:45 94 20 151/87 93 Nasal Cannula 4 03/09/16 16:30 100 20 147/87 95 Nasal Cannula 4 03/09/16 16:15 91 20 160/90 91 Nasal Cannula 4 03/09/16 16:00 86 20 150/85 91 Nasal Cannula 4 03/09/16 15:50 97.0 118 20 144/83 91 Nasal Cannula 4 03/09/16 10:53 97.9 85 16 173/77 100 I/O 03/09/16 03/09/16 03/09/16 03/10/16 03/10/16 03/10/16 07:00 15:00 23:00 07:00 15:00 23:00 Intake Total 1100 ml Output Total 5 ml Balance 1095 ml Other 1100 ml Estimated Blood Loss 5 ml # Bowel Movements 1 Result Diagram: 03/10/1642603/10/16426 Imaging Last Impressions Chest X-Ray 03/06/16 1142 Signed Impressions: Service Date/Time: Sunday, March 06, 2016 11:57 - CONCLUSION: No acute disease. Right-sided central line, appropriate in position. Savanna Lacy MD Abdomen/Pelvis CT 03/06/16 1142 Signed Impressions: Service Date/Time: Sunday, March 06, 2016 11:59 - CONCLUSION: Esophageal stent in the stomach. Low-density liver masses. Para-aortic adenopathy. Fabio Romero MD Objective Remarks GENERAL: Well-nourished, well-developed pleasant elderly male patient in [facility]. Sleeping upon my arrival, easily awakens. SKIN: Warm and dry. No rash. HEAD: Normocephalic. Atraumatic. EYES: Pupils equal and round. No scleral icterus. No injection or drainage. ENT: No nasal bleeding or discharge. Mucous membranes pink and moist. NECK: Supple. Trachea midline. CARDIOVASCULAR: Regular rate and rhythm. S1, S2 noted. No murmur appreciated. RESPIRATORY: No accessory muscle use. Clear to auscultation. Breath sounds equal bilaterally. GASTROINTESTINAL: Abdomen soft, non-tender, nondistended. Normoactive bowel sounds x4. MUSCULOSKELETAL: No obvious deformities. 2+ b/l lower extremity edema. NEUROLOGICAL: Awake and alert. No obvious cranial nerve deficits. Motor grossly within normal limits. Normal speech. PSYCHIATRIC: Appropriate mood and affect; insight and judgment normal. Procedures 03/09/16 - EGD with esophageal stent and foreign body removal Medications and IVs Current Medications Medications (Trade) Dose Ordered Sig/Herminio Route Start Time Stop Time Status Last Admin (NS Flush) 2 ml UNSCH PRN IVF 03/06/16 11:45 ([place] 10-325 Mg) 1 tab Q4H PRN PO 03/06/16 16:30 03/08/16 21:29 (Zofran Inj) 4 mg Q6HR PRN IV PUSH 03/06/16 20:00 (Dilaudid Pf Inj) 0.2 mg Q4H PRN IV PUSH 03/06/16 20:00 03/09/16 10:40 (Protonix Inj) 40 mg BID IV PUSH 03/07/16 21:00 03/09/16 20:46 (Colace) 100 mg BID PO 03/08/16 09:00 03/09/16 20:46 Trimethoprim/ Sulfamethoxazole 1 tab 1 tab Q12HR PO 03/08/16 11:30 03/09/16 20:46 (Sodium Chloride 23.4% Inj/ Dextrose 10% In Water Inj) 1,019.25 ml @ 20 mls/hr Q24H IV 03/09/16 12:00 03/09/16 12:21 Miscellaneous Information ALL NURSING DEPARTME... UNSCH PRN XX 03/09/16 16:30 03/10/16 16:29 Urinary Catheter: No Vascular Central Line Catheter: No A/P Problem List: (1) Esophageal cancer ICD Code: C15.9 Status: Acute (2) Symptomatic anemia ICD Code: D64.9 Status: Acute (3) Weakness ICD Code: R53.1 Status: Acute Assessment and Plan 80-year-old male who presented with Symptomatic Anemia of chronic disease - with generalized weakness. S/P Transfuse 2 units packed RBC with improvement in hemoglobin Iron studies suggestive of chronic disease Rectal exam showed brown stools guaiac negative Continue on PPI bid GI following as below CBC stable with Hgb 10.4 today Odynophagia with History of esophageal cancer- followed outpatient by Dr. Wilkinson-oncology and Dr. Baldwin-GI on pureed diet GI following-performed EGD 03/08, found embedded stent, repeat EGD 03/09 done with removal of esophageal stent/foreign body advanced diet, if patient tolerates diet today, possible d/c home Urinary tract infection. - Urine culture grew Proteus mirabilis sensitive to Augmentin and Bactrim IV Levaquin was changed to Bactrim 03/08, to complete 1 week of abx Chronic pain fentanyl to 25 g q 3 days Continue [place] prn, Dilaudid IV 0.2mg q4h prn constipation colace 100 mg po bid, having BMs Lower extremity swellingchronic Carlitos and DORIS doss Physical therapy, HHC at [place] Case management consult for [place] planning- home health care needs Discharge Planning Discussed with Dr. Hernández. Likely discharge today if patient tolerates his meals and cleared by GI. Case management to arrange C. Attending Statement The exam, history, and the medical decision-making described in the above note were completed with the assistance of the mid-level provider. I reviewed and agree with the findings presented. I attest that I had a [id number] encounter with the patient on the same day, and personally performed and documented my assessment and findings in the medical record. Problem Qualifiers (1) Esophageal cancer: Qualified Code: C15.4 - Malignant neoplasm of middle third of esophagus Elaine Telles PA-C Mar 10, 2016 09:04 Flex Hernández MD Mar 20, 2016 17:33
[2016-03-10] MEDS: DOCUSATE SODIUM 100 MG CAP PO SCH (09:15)
[2016-03-10] MEDS: SULFAMETHOXAZOLE-TRIMETHOPRIM DS 800-160 MG TAB PO SCH (09:16)
[2016-03-10] MEDS: PANTOPRAZOLE SODIUM 40 MG VIAL IV PUSH SCH (09:16)
[2016-03-10 11:42] VITALS: BP 89/53; PULSE 96; RESP 17; TEMP 98.3; O2SAT 93
[2016-03-10] MEDS: SODIUM CHLORIDE 23.4% INJ 77 MEQ in DEXTROSE 10% INJ 1,000 ML IV SCH (12:00)
[2016-03-10] MEDS ORDERED: BACT800T5 PO (12:34)
[2016-03-10] MEDS ORDERED: DOCU1CAP39 PO (12:34)
[2016-03-10 12:42] VITALS: BP 126/60
--- NOTE | 2016-03-10 13:37 | HHI.GIFU ---
Subjective Remarks Resting in bed. Denies any difficulty swallowing. No abdominal pain, nausea, vomiting. (Carisa Granados) Objective Vitals I&O Vital Signs Date Time Temp Pulse Resp B/P Pulse Ox O2 Delivery O2 Flow Rate FiO2 03/10/16 12:42 126/60 03/10/16 11:42 98.3 96 17 89/53 93 03/10/16 07:20 98.7 103 18 103/59 93 03/10/16 04:59 98.2 86 20 108/89 97 03/10/16 00:58 97.8 105 20 121/68 95 03/09/16 19:22 97.9 124 20 134/60 95 03/09/16 17:43 97.0 108 18 118/65 94 Nasal Cannula 4 03/09/16 17:30 108 18 118/65 94 Nasal Cannula 4 03/09/16 17:15 119 18 134/88 96 Nasal Cannula 4 03/09/16 17:00 111 18 142/84 95 Nasal Cannula 4 03/09/16 16:45 94 20 151/87 93 Nasal Cannula 4 03/09/16 16:30 100 20 147/87 95 Nasal Cannula 4 03/09/16 16:15 91 20 160/90 91 Nasal Cannula 4 03/09/16 16:00 86 20 150/85 91 Nasal Cannula 4 03/09/16 15:50 97.0 118 20 144/83 91 Nasal Cannula 4 I/O 03/09/16 03/09/16 03/09/16 03/10/16 03/10/16 03/10/16 07:00 15:00 23:00 07:00 15:00 23:00 Intake Total 1100 ml Output Total 5 ml Balance 1095 ml Other 1100 ml Estimated Blood Loss 5 ml # Bowel Movements 1 Laboratory Laboratory Tests Test 03/10/16 04:27 White Blood Count 8.5 Red Blood Count 3.58 Hemoglobin 10.4 Hematocrit 31.1 Mean Corpuscular Volume 86.7 Mean Corpuscular Hemoglobin 29.1 Mean Corpuscular Hemoglobin 33.6 Concent Red Cell Distribution Width 15.8 Platelet Count 187 Mean Platelet Volume 6.6 Sodium Level 136 Potassium Level 4.0 Chloride Level 101 Carbon Dioxide Level 24.9 Anion Gap 10 Blood Urea Nitrogen 15 Creatinine 0.96 Estimat Glomerular Filtration 92 Rate Random Glucose 94 Calcium Level 8.9 Date/Time Procedure Status Source Growth 03/06/16 15:04 Urine Culture - Final Complete Urine Clean Catch Proteus Mirabilis Esbl Pos Imaging Last Impressions Chest X-Ray 03/06/16 1142 Signed Impressions: Service Date/Time: Sunday, March 06, 2016 11:57 - CONCLUSION: No acute disease. Right-sided central line, appropriate in position. Savanna Lacy MD Abdomen/Pelvis CT 03/06/16 1142 Signed Impressions: Service Date/Time: Sunday, March 06, 2016 11:59 - CONCLUSION: Esophageal stent in the stomach. Low-density liver masses. Para-aortic adenopathy. Fabio Romero MD Physical Exam HEENT: Normocephalic; atraumatic; no jaundice. Throat is clear. NECK: Neck is supple, no JVD, no lymphadenopathy. CHEST: CTA. CARDIAC: RRR. ABDOMEN: Soft, nondistended, nontender; no hepatosplenomegaly; bowel sounds are present in all four quadrants. EXTREMITIES: No clubbing, cyanosis, or edema. SKIN: Normal; no rash; no jaundice. DESIGN TECHNICIAN: No focal deficits; Lethargic and oriented times three. (Carisa Granados) Assessment and Plan Plan ASSESSMENT: - Epigastric pain. Pt with intermittent sharp epigastric pain since yesterday. Abdomen/Pelvis CT (03/06/16)----> Esophageal stent in the stomach. Low-density liver masses. Para-aortic adenopathy. S/P EGD (03/09)-----> esophageal stent and foreign body from the stomach, hx of esophageal cancer with no evidence of cancer at this point. ST recommends puree diet with thin liquids. Not having any abdominal pain. - Esophageal cancer. Followed by Dr. Baldwin and Dr. Wilkinson. Dx 1 year ago. S/P 32 weeks of radiation, completed on 02/06. He is currently on chemotherapy with Dr. Wilkinson- does not know the name, but last had on Sunday. Last EGD was 4 months ago. - Dysphagia. Pt had esophageal stent placed by Dr. Baldwin in April of 2015. Since this time, he has been able to eat soft foods. He does have decreased appetite, but denies any difficulty with food getting caught. He ate 90% lunch. - Iron Deficiency Anemia. H/H 7.7/22.7. S/P 2 units PRBC. 10.4/31.1 PLAN: - Puree diet with thin liquids - Okay to d/c home from GI standpoint - FU with Dr. Wilkinson and Dr. Baldwin at discharge - Pt seen and examined by Dr. Zarco and myself and this note is written on his behalf (Carisa Granados) Physician Comments Patient was seen and examined Agree with above Continue with current supportive care Monitor labs We will sign off (Quique Zarco MD) Carisa Granados Mar 10, 2016 13:37 Quique Zarco MD Mar 10, 2016 17:02
[2016-03-10] MEDS: ACETAMINOPHEN/HYDROcodone 325 MG/10 MG TAB PO PRN (14:10)
[2016-03-10 15:43] VITALS: BP 92/52; PULSE 94; RESP 16; TEMP 98.1; O2SAT 93
[2016-03-10] MEDS ORDERED: HYDR-3583 PO (17:34)
--- NOTE | 2016-03-10 18:01 | HHI.DS ---
cc: Fabio Layne MD; Quique Zarco MD Discharge Summary Admission Date Mar 06, 2016 at 13:43 Discharge Date: Mar 10, 2016 Admitting Diagnosis symptomatic anemia, generalized weakness, esophageal cancer (1) Symptomatic anemia ICD Code: D64.9 Diagnosis: Principal (2) Dysphagia ICD Code: R13.10 Diagnosis: Principal (3) Migrated esophageal stent ICD Code: T85.528A Diagnosis: Secondary (4) Esophageal cancer ICD Code: C15.9 Diagnosis: Secondary (5) Weakness ICD Code: R53.1 Diagnosis: Secondary Procedures 03/08/16 - EGD which showed esophageal stent and another stent embedded in the stomach, unable to remove in GI lab 03/09/16 - Repeat EGD in OR with esophageal stent removal and foreign body removal from stomach Brief History - From Admission Patient is a very pleasant 80 year old male with history of esophageal cancer diagnosed about a year ago completed 32 weeks of radiation therapy. Patient currently is having a chemotherapy under Dr. Piña. Baseline he uses a cane for long walks. Patient has been having difficulty swallowing still occasionally and is on a soft diet. Also has chronic back pain for which he takes narcotics with good relief. This morning felt weak and promptly summoned to bring him in here and on evaluation with a hemoglobin of 7.6. Don't have any baseline for comparison. Stools are brown and guaiac negative. Patient states that at one point he had blood transfusion 2 but this was about 8 months ago. Patient now admitted for blood transfusion. As the patient denies any melena hematochezia nausea vomiting or any fever. He denies any cough denies any dysuria chills. Denies any difficulty swallowing. he states is on soft diet CBC/BMP: 03/10/167 03/10/16426 Significant Findings Laboratory Tests Test 03/10/16 04:27 Red Blood Count 3.58 MIL/MM3 (4.50-5.90) Hemoglobin 10.4 GM/DL (13.0-17.0) Hematocrit 31.1 % (39.0-51.0) Mean Platelet Volume 6.6 FL (7.0-11.0) Imaging Last Impressions Chest X-Ray 03/06/16 1142 Signed Impressions: Service Date/Time: Sunday, March 06, 2016 11:57 - CONCLUSION: No acute disease. Right-sided central line, appropriate in position. Savanna Lacy MD Abdomen/Pelvis CT 03/06/16 1142 Signed Impressions: Service Date/Time: Sunday, March 06, 2016 11:59 - CONCLUSION: Esophageal stent in the stomach. Low-density liver masses. Para-aortic adenopathy. Fabio Romero MD PE at Discharge GENERAL: Well-nourished, well-developed pleasant elderly male patient in [facility]. Sleeping upon my arrival, easily awakens. SKIN: Warm and dry. No rash. HEAD: Normocephalic. Atraumatic. EYES: Pupils equal and round. No scleral icterus. No injection or drainage. ENT: No nasal bleeding or discharge. Mucous membranes pink and moist. NECK: Supple. Trachea midline. CARDIOVASCULAR: Regular rate and rhythm. S1, S2 noted. No murmur appreciated. RESPIRATORY: No accessory muscle use. Clear to auscultation. Breath sounds equal bilaterally. GASTROINTESTINAL: Abdomen soft, non-tender, nondistended. Normoactive bowel sounds x4. MUSCULOSKELETAL: No obvious deformities. 2+ b/l lower extremity edema. NEUROLOGICAL: Awake and alert. No obvious cranial nerve deficits. Motor grossly within normal limits. Normal speech. PSYCHIATRIC: Appropriate mood and affect; insight and judgment normal. Hospital Course 80-year-old male who presented with Symptomatic Anemia of chronic disease - with generalized weakness. S/P Transfuse 2 units packed RBC with improvement in hemoglobin Iron studies suggestive of chronic disease Rectal exam showed brown stools guaiac negative Continue on PPI bid GI following as below, EGD without any source of bleed CBC stable with Hgb 10.4 today Odynophagia with History of esophageal cancer- followed outpatient by Dr. Wilkinson-oncology and Dr. Baldwin-GI on pureed diet GI following-performed EGD 03/08, found embedded stent, repeat EGD 03/09 done with removal of esophageal stent/foreign body in the stomach advanced diet to baseline pureed diet today, patient tolerated well cleared by GI for discharge Urinary tract infection. - Urine culture grew Proteus mirabilis sensitive to Augmentin and Bactrim IV Levaquin was changed to Bactrim 03/08, to complete total 1 week of abx Chronic pain fentanyl to 25 g q 3 days Continue [place] prn, Dilaudid IV 0.2mg q4h prn constipation: colace 100 mg po bid, having BMs Lower extremity swellingchronic: [place] and DORIS doss Physical therapy, recommended HHC at DC. Case management consult for DC planning. Walker delivered to patient's home. HHC arranged. Pt Condition on Discharge: Stable Discharge Disposition: Disch w/ Home Health Serv Discharge Time: > 30 minutes Discharge Instructions DIET: Follow Instructions for: Heart Healthy Diet Speech Therapy-Diet Recommends: Pureed Activities you can perform: Regular-No Restrictions Follow up Referrals: Gastroenterology - 10 Days with Quique Zarco MD PCP Follow-up - 1 Week with Fabio Layne MD New Medications: Walker Rolling/GetGo (Walker Rolling/GetGo) 1 Mis Mis 1 EA .ROUTE DIRECTED #1 EA Docusate Sodium (Dok) 100 Mg Cap 100 MG PO BID Constipation #60 CAP Sulfamethoxazole-Trimethoprim (Bactrim DS) 800-160 Mg Tab 1 TAB PO Q12HR UTI #10 TAB Continued Medications: Hydrocodone-Acetaminophen (Hydrocodone-Acetaminophen) 10-325 mg Tab 1 TAB PO Q4H PRN PAIN #18 Ref 0 TAB (This prescription has been renewed) Omeprazole (Omeprazole) 40 Mg Cap 40 MG PO DAILY Ref 0 CAP Ondansetron Odt (Ondansetron Odt) 4 Mg Tab 4 MG SL Q6HR PRN Nausea/Vomiting Ref 0 TAB Additional Information The exam, history, and the medical decision-making described in the above note were completed with the assistance of the mid-level provider. I reviewed and agree with the findings presented. I attest that I had a [id number] encounter with the patient on the same day, and personally performed and documented my assessment and findings in the medical record. Elaine Telles PA-C Mar 10, 2016 18:01 Flex Hernández MD Mar 20, 2016 18:05
== END 2016-03-10 18:18 | disposition home or self-care (01) ==
LOC: NEPA 11:23 → NEDA 13:43 → NEPHCDU 15:38
PROVIDERS: ADMIT Internal Medicine; ATTEND Internal Medicine
DX: D63.8 Anemia in other chronic diseases classified elsewhere (principal); R13.10 Dysphagia, unspecified; T85.528A Displacement of other gastrointestinal prosthetic devices, implants and grafts, initial encounter; C15.4 Malignant neoplasm of middle third of esophagus; N39.0 Urinary tract infection, site not specified; B96.4 Proteus (mirabilis) (morganii) as the cause of diseases classified elsewhere; M54.9 Dorsalgia, unspecified; G89.29 Other chronic pain; K59.00 Constipation, unspecified; R06.02 Shortness of breath; K62.89 Other specified diseases of anus and rectum; R94.31 Abnormal electrocardiogram [ECG] [EKG]; Z87.891 Personal history of nicotine dependence; Z92.3 Personal history of irradiation
CPT/HCPCS: 00740; 36430; 43235; 43247; 71010; 74176; 80048; 80053; 81001; 82607; 82728; 82746; 83540; 83550; 84484; 85025; 85027; 85610; 85730; 86850; 86900; 86901; 86920; 87077; 87086; 87186; 92526; 92610; 93005; 94640; 96360; 96361; 97162; 99291; C1726; C9113; G0378; G8987; G8988; G8996; G8997; G8998; J1170; J1956; J2250; J2270; J2405; J3010; J3480; J7040; J7120; J7613; P9016